=== PATIENT | female | born 2000 | race Hispanic/Latino ===

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

== ENCOUNTER 2021-07-20 21:31 | Emergency (ER) | payer MEDICAID ==
[~2021-07-20] VITALS: Ht 157.5 cm; Wt 91.6 kg
[2021-07-20 21:56] LABS: APPEARANCE,URINE Clear (CLEAR); BILIRUBIN,URINE Negative (NEGATIVE); COLOR,URINE Yellow (YELLOW); GLUCOSE, URINE (UA) Negative (NEGATIVE); KETONES,URINE Trace mg/dL (NEGATIVE); LEUKOCYTE ESTERASE ,URINE Trace (NEGATIVE); NITRATE,URINE Negative (NEGATIVE); OCCULT BLOOD,URINE Negative (NEGATIVE); PROTEIN,URINE Negative (NEGATIVE)
[2021-07-20 21:58] LABS: HCG,QUAL RESULT NEGATIVE (NEGATIVE)
[2021-07-20] MEDS ORDERED: ACETAMINOPHEN 500 MG TABLET PO ONE (22:00)
[2021-07-20] MEDS ORDERED: IBUPROFEN 600 MG TABLET PO ONE (22:00)
[2021-07-20] MEDS ORDERED: ONDANSETRON ODT 4MG TAB SL ONE (22:00)
[2021-07-20 22:11] LABS: BACTERIA,URINE Rare /HPF (None Seen); RBC,URINE 0-1 /HPF (0-1); SQUAMOUS EPITHELIAL CELL,UR Few /HPF (0-2)
[2021-07-20 22:16] LABS: BASOPHILS % (AUTO) 0.5 % (0.0-5.0); EOSINOPHILS % (AUTO) 2.4 % (0.0-8.0); HEMATOCRIT 35.4 % (36-48); LYMPHOCYTES % (AUTO) 11.5 % (21.0-51.0); MEAN CORPUSCULAR HEMOGLOBIN 24.8 pg (27.0-33.0); MEAN CORPUSCULAR HGB CONC 32.2 g/dL (32.0-36.0); MEAN CORPUSCULAR VOLUME 77.1 fL (80-100); MONOCYTES % (AUTO) 4.6 % (3.0-13.0); NEUTROPHILS % (AUTO) 80.5 % (40.0-77.0); PLATELET COUNT (AUTO) 283 K/uL (130-400); RED BLOOD CELL COUNT(AUTO) 4.59 MIL/uL (4.00-5.50); RED CELL DISTRIBUTION WIDTH 14.1 % (11.0-15.5); WHITE BLOOD COUNT (AUTO) 5.8 K/uL (4.8-10.8)
[2021-07-20 22:23] LABS: CREATININE 0.8 mg/dL (0.5-1.5); POTASSIUM 3.5 mmol/L (3.5-5.1)
[2021-07-20 22:28] LABS: ALBUMIN 3.5 g/dL (3.5-5.0); BILIRUBIN,TOTAL 0.2 mg/dL (0.2-1.0); TOTAL PROTEIN, SERUM 7.9 g/dL (6.0-8.3)
[2021-07-20] MEDS ORDERED: 0.9%NACL 1000ML 1,000 ML IV ONE (22:30)
[2021-07-20] MEDS ORDERED: ONDANSETRON 4MG INJ IVP ONE (22:30)
[2021-07-20] MEDS ORDERED: ONDA4TAB10 PO (23:06)
[2021-07-20] MEDS ORDERED: BENZ-39 PO (23:06)
[2021-07-20] MEDS ORDERED: IBUP-2070 PO (23:06)
[2021-07-20] MEDS ORDERED: AZIT500T2 PO (23:06)
[2021-07-20 23:20] VITALS: BP 145/87
== END 2021-07-20 23:47 | disposition home or self-care (01) ==
LOC: EDH 21:31
DX: J10.1 Influenza due to other identified influenza virus with other respiratory manifestations (principal)
CPT/HCPCS: 36415; 71045; 80053; 81001; 81025; 85025; 87804 ×2; 87880; 93005; 96374; 99285; J2405; J7030

== ENCOUNTER 2021-10-24 22:51 | Emergency (ER) | payer MEDICAID ==
[~2021-10-24] VITALS: Ht 157.5 cm; Wt 88.0 kg
[~2021-10-24 22:51] MED LIST: AZIT500T2 PO; BENZ-39 PO; IBUP-2070 PO; ONDA4TAB10 PO
[2021-10-24 23:27] LABS: HCG,QUALITATIVE URINE NEGATIVE (NEGATIVE)
[2021-10-24 23:27] LABS: BASOPHILS % (AUTO) 0.5 % (0.0-5.0); EOSINOPHILS % (AUTO) 2.2 % (0.0-8.0); HEMATOCRIT 36.2 % (36-48); LYMPHOCYTES % (AUTO) 20.6 % (21.0-51.0); MEAN CORPUSCULAR HEMOGLOBIN 24.9 pg (27.0-33.0); MEAN CORPUSCULAR HGB CONC 33.7 g/dL (32.0-36.0); MEAN CORPUSCULAR VOLUME 73.9 fL (80-100); MONOCYTES % (AUTO) 4.8 % (3.0-13.0); NEUTROPHILS % (AUTO) 71.5 % (40.0-77.0); PLATELET COUNT (AUTO) 399 K/uL (130-400); RED CELL DISTRIBUTION WIDTH 13.6 % (11.0-15.5); WHITE BLOOD COUNT (AUTO) 13.3 K/uL (4.8-10.8)
[2021-10-24 23:28] LABS: APPEARANCE,URINE CLEAR (CLEAR); BILIRUBIN,URINE NEGATIVE (NEGATIVE); COLOR,URINE YELLOW (YELLOW); GLUCOSE, URINE (UA) NEGATIVE (NEGATIVE); KETONES,URINE NEGATIVE (NEGATIVE); LEUKOCYTE ESTERASE ,URINE SMALL (NEGATIVE); NITRATE,URINE NEGATIVE (NEGATIVE); OCCULT BLOOD,URINE NEGATIVE (NEGATIVE); PROTEIN,URINE NEGATIVE (NEGATIVE); UROBILINOGEN,URINE 0.2 mg/dL (0.2-1.0)
[2021-10-24] MEDS ORDERED: 0.9%NACL 1000ML 1,000 ML IV ONE (23:30)
[2021-10-24] MEDS ORDERED: ONDANSETRON 4MG INJ IVP ONE (23:30)
[2021-10-24 23:34] LABS: BACTERIA,URINE None Seen /HPF (None Seen); RBC,URINE None Seen /HPF (0-1); SQUAMOUS EPITHELIAL CELL,UR Few /HPF (0-2); WBC,URINE 0-1 /HPF (0-1)
[2021-10-24 23:38] LABS: CREATININE 0.9 mg/dL (0.5-1.5); POTASSIUM 3.3 mmol/L (3.5-5.1)
[2021-10-24 23:42] LABS: ALBUMIN 3.9 g/dL (3.5-5.0); TOTAL PROTEIN, SERUM 8.4 g/dL (6.0-8.3)
[2021-10-24] MEDS ORDERED: IOHEXOL 350 MG/ML 100ML INFUS..BTL IV ONE (23:48)
[2021-10-25 00:04] LABS: AMPHET/METH SCREEN,URINE NEGATIVE (NEGATIVE); BARBITURATE SCREEN, URINE NEGATIVE (NEGATIVE); BENZODIAZEPINES SCREEN,URINE NEGATIVE (NEGATIVE); CANNABINOID SCREEN,URINE NEGATIVE (NEGATIVE); COCAINE SCREEN,URINE NEGATIVE (NEGATIVE); PHENCYCLIDINE SCREEN,URINE NEGATIVE (NEGATIVE)
[2021-10-25] MEDS ORDERED: KETOROLAC 30MG VIAL (30MG/ML) IVP ONE (00:30)
[2021-10-25 02:20] VITALS: BP 123/64
[2021-10-25] MEDS ORDERED: CEFTRIAXONE 500MG VIAL ONE (02:42)
[2021-10-25] MEDS ORDERED: DOXYCYCLINE HYCLATE 100 MG TABLET PO ONE (02:43)
[2021-10-25] MEDS ORDERED: IBUP-2070 PO (02:58)
[2021-10-25] MEDS ORDERED: DOXY-336 PO (02:58)
[2021-10-25] MEDS ORDERED: ONDA4TAB10 PO (02:58)
[2021-10-25] MEDS ORDERED: DOXYCYCLINE HYCLATE 100 MG TABLET PO SCH (03:00)
[2021-10-25] MEDS ORDERED: CEFTRIAXONE 500MG VIAL IV SCH (03:00)
== END 2021-10-25 03:20 | disposition home or self-care (01) ==
LOC: EDH 22:51
DX: N73.9 Female pelvic inflammatory disease, unspecified (principal); Z20.822 Contact with and (suspected) exposure to COVID-19; Z79.1 Long term (current) use of non-steroidal anti-inflammatories (NSAID); Z79.899 Other long term (current) drug therapy
CPT/HCPCS: 99285; 74177; 96374; 87635; 80053; 80305; 83690; 85025; 87210; 87804 ×2; 87797; 87486; 81001; 81025; 36415; 96375; C9803; Q9967; J1885; J0696

== ENCOUNTER 2022-02-06 17:44 | Emergency (ER) | payer MEDICAID ==
[~2022-02-06] VITALS: Ht 157.5 cm; Wt 88.5 kg
[~2022-02-06 17:44] MED LIST changes: +DOXY-469 PO
[2022-02-06 17:46] VITALS: BP 116/75
[2022-02-06] MEDS ORDERED: MAG/ALUM/SIMETH 30 ML UDCUP PO ONE (18:00)
[2022-02-06] MEDS ORDERED: LIDOCAINE HCL 2% VISCOUS 15 ML UDCUP PO ONE (18:00)
[2022-02-06] MEDS ORDERED: FAMOTIDINE 20MG TAB PO ONE (18:00)
[2022-02-06] MEDS ORDERED: ONDANSETRON 4MG TABLET PO ONE (18:00)
[2022-02-06] MEDS ORDERED: DICYCLOMINE HCL 10 MG/5 ML ML PO ONE (18:00)
[2022-02-06] MEDS ORDERED: ONDANSETRON ODT 4MG TAB ONE (18:03)
[2022-02-06 18:20] LABS: BASOPHILS % (AUTO) 0.6 % (0.0-5.0); EOSINOPHILS % (AUTO) 5.3 % (0.0-8.0); HEMATOCRIT 37.8 % (36-48); LYMPHOCYTES % (AUTO) 20.3 % (21.0-51.0); MEAN CORPUSCULAR HEMOGLOBIN 24.5 pg (27.0-33.0); MEAN CORPUSCULAR HGB CONC 32.5 g/dL (32.0-36.0); MEAN CORPUSCULAR VOLUME 75.1 fL (80-100); MONOCYTES % (AUTO) 4.5 % (3.0-13.0); NEUTROPHILS % (AUTO) 68.9 % (40.0-77.0); PLATELET COUNT (AUTO) 411 K/uL (130-400); RED BLOOD CELL COUNT(AUTO) 5.03 MIL/uL (4.00-5.50); RED CELL DISTRIBUTION WIDTH 14.2 % (11.0-15.5); WHITE BLOOD COUNT (AUTO) 11.6 K/uL (4.8-10.8)
[2022-02-06 18:24] LABS: APPEARANCE,URINE CLEAR (CLEAR); BILIRUBIN,URINE NEGATIVE (NEGATIVE); COLOR,URINE LIGHT-YELLOW (YELLOW); GLUCOSE, URINE (UA) NEGATIVE (NEGATIVE); KETONES,URINE NEGATIVE (NEGATIVE); LEUKOCYTE ESTERASE ,URINE 75 Leu/uL (NEGATIVE); NITRATE,URINE NEGATIVE (NEGATIVE); OCCULT BLOOD,URINE NEGATIVE (NEGATIVE); PROTEIN,URINE NEGATIVE (NEGATIVE); UROBILINOGEN,URINE 0.2 mg/dL (0.2-1.0)
[2022-02-06 18:26] LABS: HCG,QUALITATIVE URINE NEGATIVE (NEGATIVE)
[2022-02-06 18:29] LABS: CARBON DIOXIDE 26 mmol/L (21-32); CHLORIDE 101 mmol/L (101-111); CREATININE 0.7 mg/dL (0.5-1.5); GLOMERULAR FILTR. RATE CALC 112 mL/min (>60); GLUCOSE,RANDOM 98 mg/dL (70-105); SODIUM SERUM 137 mmol/L (136-145); UREA NITROGEN, BLOOD 10 mg/dL (7-18)
[2022-02-06 18:33] LABS: ALANINE AMINOTRANSFERASE 35 U/L (12-78); ALBUMIN 3.9 g/dL (3.5-5.0); ASPARTATE AMINOTRANSFERASE 18 U/L (10-37); TOTAL PROTEIN, SERUM 8.6 g/dL (6.0-8.3)
[2022-02-06 18:34] LABS: BACTERIA,URINE RARE /HPF (None Seen); MUCUS,URINE RARE LPF (None Seen); RBC,URINE 0-1 /HPF (0-1); SQUAMOUS EPITHELIAL CELL,UR RARE /HPF (0-2)
[2022-02-06 18:39] LABS: LIPASE < 50 U/L (114-286)
[2022-02-06] MEDS ORDERED: FAMO-136 PO (19:02)
== END 2022-02-06 19:08 | disposition home or self-care (01) ==
LOC: EDH 17:44
DX: K29.70 Gastritis, unspecified, without bleeding (principal); E66.9 Obesity, unspecified; Z68.35 Body mass index [BMI] 35.0-35.9, adult; F32.A Depression, unspecified; F41.9 Anxiety disorder, unspecified; Z79.899 Other long term (current) drug therapy
CPT/HCPCS: 36415; 80053; 81001; 81025; 83690; 85025; 87088

== ENCOUNTER 2022-03-31 18:05 | Emergency (ER) | payer MEDICAID ==
[~2022-03-31] VITALS: Ht 152.4 cm; Wt 89.8 kg
[~2022-03-31 18:05] MED LIST changes: +FAMO-136 PO
[2022-03-31] MEDS ORDERED: CIPR7.5D OT (19:51)
[2022-03-31] MEDS ORDERED: LORA10TA7 PO (19:52)
[2022-03-31 20:42] VITALS: BP 130/79
== END 2022-03-31 20:49 | disposition home or self-care (01) ==
LOC: EDH 18:05
DX: H92.03 Otalgia, bilateral (principal); H60.91 Unspecified otitis externa, right ear; Z20.822 Contact with and (suspected) exposure to COVID-19; F41.9 Anxiety disorder, unspecified; Z79.899 Other long term (current) drug therapy
CPT/HCPCS: 99283; 87635; 87804 ×2; C9803

== ENCOUNTER 2022-05-31 21:59 | Emergency (ER) | payer MEDICAID ==
[~2022-05-31] VITALS: Ht 157.5 cm; Wt 93.0 kg
[~2022-05-31 21:59] MED LIST changes: +CIPR7.5D OT; +LORA10TA7 PO
[2022-05-31] MEDS ORDERED: DICYCLOMINE HCL 10 MG/5 ML ML PO ONE (22:24)
[2022-05-31] MEDS ORDERED: LIDOCAINE HCL 2% VISCOUS 15 ML UDCUP PO ONE (22:30)
[2022-05-31] MEDS ORDERED: ONDANSETRON 4MG INJ IVP ONE (22:30)
[2022-05-31] MEDS ORDERED: MAG/ALUM/SIMETH 30 ML UDCUP PO ONE (22:30)
[2022-05-31] MEDS ORDERED: KETOROLAC 30MG VIAL (30MG/ML) ONE (22:53)
[2022-05-31 22:55] LABS: APPEARANCE,URINE CLEAR (CLEAR); BILIRUBIN,URINE NEGATIVE (NEGATIVE); COLOR,URINE LIGHT-YELLOW (YELLOW); GLUCOSE, URINE (UA) NEGATIVE (NEGATIVE); KETONES,URINE NEGATIVE (NEGATIVE); LEUKOCYTE ESTERASE ,URINE 25 Leu/uL (NEGATIVE); NITRATE,URINE NEGATIVE (NEGATIVE); OCCULT BLOOD,URINE MODERATE (NEGATIVE); PH,URINE 6.5 (5.0-8.0); PROTEIN,URINE NEGATIVE (NEGATIVE); UROBILINOGEN,URINE 0.2 mg/dL (0.2-1.0)
[2022-05-31 22:56] LABS: HCG,QUALITATIVE URINE NEGATIVE (NEGATIVE)
[2022-05-31 22:56] LABS: BASOPHILS % (AUTO) 0.5 % (0.0-5.0); EOSINOPHILS % (AUTO) 5.1 % (0.0-8.0); HEMATOCRIT 35.3 % (36-48); LYMPHOCYTES % (AUTO) 29.9 % (21.0-51.0); MEAN CORPUSCULAR HEMOGLOBIN 25.1 pg (27.0-33.0); MEAN CORPUSCULAR HGB CONC 32.9 g/dL (32.0-36.0); MEAN CORPUSCULAR VOLUME 76.2 fL (80-100); MONOCYTES % (AUTO) 4.7 % (3.0-13.0); NEUTROPHILS % (AUTO) 59.4 % (40.0-77.0); PLATELET COUNT (AUTO) 400 K/uL (130-400); RED BLOOD CELL COUNT(AUTO) 4.63 MIL/uL (4.00-5.50); RED CELL DISTRIBUTION WIDTH 13.5 % (11.0-15.5); WHITE BLOOD COUNT (AUTO) 10.2 K/uL (4.8-10.8)
[2022-05-31] MEDS ORDERED: KETOROLAC 30MG VIAL (30MG/ML) IVP ONE (23:00)
[2022-05-31 23:01] LABS: BACTERIA,URINE RARE /HPF (None Seen); MUCUS,URINE RARE LPF (None Seen); RBC,URINE 0-1 /HPF (0-1); SQUAMOUS EPITHELIAL CELL,UR FEW /HPF (0-2)
[2022-05-31 23:06] LABS: CARBON DIOXIDE 23 mmol/L (21-32); CHLORIDE 103 mmol/L (101-111); CREATININE 0.6 mg/dL (0.5-1.5); GLOMERULAR FILTR. RATE CALC 131 mL/min (>90); GLUCOSE,RANDOM 99 mg/dL (70-105); POTASSIUM 3.2 mmol/L (3.5-5.1); SODIUM SERUM 136 mmol/L (136-145); UREA NITROGEN, BLOOD 8 mg/dL (7-18)
[2022-05-31 23:11] LABS: ALANINE AMINOTRANSFERASE 26 U/L (12-78); ALBUMIN 3.7 g/dL (3.5-5.0); ASPARTATE AMINOTRANSFERASE 26 U/L (10-37)
[2022-05-31 23:26] LABS: LIPASE < 50 U/L (114-286)
[2022-05-31 23:33] LABS: AMPHET/METH SCREEN,URINE NEGATIVE (NEGATIVE); BARBITURATE SCREEN, URINE NEGATIVE (NEGATIVE); BENZODIAZEPINES SCREEN,URINE NEGATIVE (NEGATIVE); CANNABINOID SCREEN,URINE NEGATIVE (NEGATIVE); COCAINE SCREEN,URINE NEGATIVE (NEGATIVE); OPIATE SCREEN,URINE NEGATIVE (NEGATIVE); PHENCYCLIDINE SCREEN,URINE NEGATIVE (NEGATIVE)
[2022-05-31] MEDS ORDERED: POTASSIUM BICARB/CIT AC 25 MEQ TABLET.EFF PO STA (23:40)
[2022-05-31] MEDS ORDERED: PANT40TA55 PO (23:48)
[2022-06-01 00:17] VITALS: BP 128/74
== END 2022-06-01 00:22 | disposition home or self-care (01) ==
LOC: EDH 21:59
DX: K29.70 Gastritis, unspecified, without bleeding (principal); F41.9 Anxiety disorder, unspecified; E66.9 Obesity, unspecified; Z79.899 Other long term (current) drug therapy
CPT/HCPCS: 99284; 96374; 96375; 80053; 80305; 83690; 85025; 81025; 36415; 81001; J2405; J1885

== ENCOUNTER 2022-06-15 01:40 | Emergency (ER) | payer MEDICAID ==
[~2022-06-15] VITALS: Ht 157.5 cm; Wt 92.1 kg
[~2022-06-15 01:40] MED LIST changes: +PANT40TA55 PO
[2022-06-15 02:08] LABS: BASOPHILS % (AUTO) 0.5 % (0.0-5.0); HEMATOCRIT 37.3 % (36-48); LYMPHOCYTES % (AUTO) 21.4 % (21.0-51.0); MEAN CORPUSCULAR HEMOGLOBIN 24.8 pg (27.0-33.0); MEAN CORPUSCULAR HGB CONC 32.2 g/dL (32.0-36.0); MEAN CORPUSCULAR VOLUME 77.2 fL (80-100); NEUTROPHILS % (AUTO) 69.8 % (40.0-77.0); PLATELET COUNT (AUTO) 373 K/uL (130-400); RED BLOOD CELL COUNT(AUTO) 4.83 MIL/uL (4.00-5.50); RED CELL DISTRIBUTION WIDTH 13.7 % (11.0-15.5)
[2022-06-15 02:12] LABS: APPEARANCE,URINE CLEAR (CLEAR); BILIRUBIN,URINE NEGATIVE (NEGATIVE); COLOR,URINE COLORLESS (YELLOW); GLUCOSE, URINE (UA) NEGATIVE (NEGATIVE); KETONES,URINE NEGATIVE (NEGATIVE); LEUKOCYTE ESTERASE ,URINE 25 Leu/uL (NEGATIVE); NITRATE,URINE NEGATIVE (NEGATIVE); OCCULT BLOOD,URINE NEGATIVE (NEGATIVE); PROTEIN,URINE NEGATIVE (NEGATIVE); UROBILINOGEN,URINE 0.2 mg/dL (0.2-1.0)
[2022-06-15 02:15] LABS: RBC,URINE 0-1 /HPF (0-1); SQUAMOUS EPITHELIAL CELL,UR RARE /HPF (0-2); WBC,URINE 0-1 /HPF (0-1)
[2022-06-15 02:24] LABS: CARBON DIOXIDE 26 mmol/L (21-32); CHLORIDE 100 mmol/L (101-111); CREATININE 0.7 mg/dL (0.5-1.5); GLOMERULAR FILTR. RATE CALC 126 mL/min (>90); GLUCOSE,RANDOM 103 mg/dL (70-105); POTASSIUM 3.4 mmol/L (3.5-5.1); SODIUM SERUM 133 mmol/L (136-145); UREA NITROGEN, BLOOD 7 mg/dL (7-18)
[2022-06-15 02:30] LABS: ALANINE AMINOTRANSFERASE 25 U/L (12-78); ALBUMIN 3.9 g/dL (3.5-5.0); ASPARTATE AMINOTRANSFERASE 13 U/L (10-37); TOTAL PROTEIN, SERUM 7.9 g/dL (6.0-8.3)
[2022-06-15 02:31] LABS: LIPASE < 50 U/L (114-286)
[2022-06-15] MEDS ORDERED: 0.9%NACL 1000ML 1,000 ML IV ONE (03:00)
[2022-06-15] MEDS ORDERED: ONDANSETRON 4MG INJ IVP ONE (03:00)
[2022-06-15] MEDS ORDERED: KETOROLAC 30MG VIAL (30MG/ML) IVP ONE (03:00)
[2022-06-15 03:26] LABS: AMYLASE 58 U/L (25-115); CREATINE KINASE, TOTAL 55 U/L (21-232)
[2022-06-15] MEDS ORDERED: ONDA-104 PO (03:40)
[2022-06-15] MEDS ORDERED: IBUP-2071 PO (03:40)
[2022-06-15 04:09] VITALS: BP 110/68
== END 2022-06-15 04:11 | disposition home or self-care (01) ==
LOC: EDH 01:43
DX: K80.20 Calculus of gallbladder without cholecystitis without obstruction (principal); E66.9 Obesity, unspecified; Z79.899 Other long term (current) drug therapy
CPT/HCPCS: 99285; 96374; 76705; 96361; 96375; 82150; 82550; 84484; 80053; 83690; 85025; 81001; 81025; 36415; 93005; J7030; J2405; J1885

== ENCOUNTER 2022-07-24 19:54 | Emergency (ER) | payer MEDICAID, OTHER ==
[~2022-07-24] VITALS: Ht 157.5 cm; Wt 95.3 kg
[~2022-07-24 19:54] MED LIST changes: -AZIT500T2 PO; -BENZ-39 PO; -CIPR7.5D OT; -DOXY-469 PO; -FAMO-136 PO; +IBUP-1493 PO; -IBUP-2070 PO; -LORA10TA7 PO; +OMEP40CA21 PO; +ONDA-104 PO; -ONDA4TAB10 PO; -PANT40TA55 PO
[2022-07-24 19:59] VITALS: BP 127/71
[2022-07-24] MEDS ORDERED: IBUP-2070 PO (22:30)
== END 2022-07-24 22:39 | disposition home or self-care (01) ==
LOC: EDH 19:54
DX: S66.812A Strain of other specified muscles, fascia and tendons at wrist and hand level, left hand, initial encounter (principal); S40.022A Contusion of left upper arm, initial encounter; Z79.899 Other long term (current) drug therapy; Z98.890 Other specified postprocedural states; W18.39XA Other fall on same level, initial encounter; Y93.89 Activity, other specified; Y92.89 Other specified places as the place of occurrence of the external cause; Y99.8 Other external cause status
CPT/HCPCS: 29105; 73070; 73090; 73100

== ENCOUNTER 2022-09-10 23:23 | Emergency (ER) | payer MEDICAID ==
[~2022-09-10] VITALS: Ht 157.5 cm; Wt 93.0 kg
[~2022-09-10 23:23] MED LIST changes: +IBUP-2070 PO
[2022-09-10 23:26] VITALS: BP 152/83
== END 2022-09-11 | disposition home or self-care (01) ==
LOC: EDH 23:23
DX: T16.2XXA Foreign body in left ear, initial encounter (principal); E66.9 Obesity, unspecified; F41.9 Anxiety disorder, unspecified; Z79.899 Other long term (current) drug therapy; Z98.890 Other specified postprocedural states; X58.XXXA Exposure to other specified factors, initial encounter; Y93.89 Activity, other specified; Y92.89 Other specified places as the place of occurrence of the external cause; Y99.8 Other external cause status
CPT/HCPCS: 99281

== ENCOUNTER 2022-09-28 18:25 | Emergency (ER) | payer MEDICAID ==
[~2022-09-28] VITALS: Ht 157.5 cm; Wt 95.3 kg
[2022-09-28 18:31] VITALS: BP 121/63
[2022-09-28] MEDS ORDERED: HYDROXYZINE 50MG VIAL 50 MG/ML VIAL IM SCH (22:00)
[2022-09-28] MEDS ORDERED: HYD25 PO (23:26)
== END 2022-09-28 23:37 | disposition home or self-care (01) ==
LOC: EDH 18:25
DX: F41.9 Anxiety disorder, unspecified (principal); E66.9 Obesity, unspecified; Z79.1 Long term (current) use of non-steroidal anti-inflammatories (NSAID); Z79.899 Other long term (current) drug therapy; Z90.49 Acquired absence of other specified parts of digestive tract; Z68.38 Body mass index [BMI] 38.0-38.9, adult
CPT/HCPCS: 99283; 96372; J3410

== ENCOUNTER 2022-12-02 09:52 | Emergency (ER) | payer MEDICAID ==
[~2022-12-02] VITALS: Ht 157.5 cm; Wt 95.3 kg
[~2022-12-02 09:52] MED LIST changes: +HYD25 PO
[2022-12-02 10:22] LABS: SARS-CoV-2, RNA, NAAT POSITIVE SARS CoV-2 (NEGATIVE)
[2022-12-02 10:32] LABS: INFLUENZA TYPE A Negative For Type A (NEGATIVE); INFLUENZA TYPE B Negative For Type B (NEGATIVE)
[2022-12-02 11:40] VITALS: BP 110/65; PULSE 85; RESP 17; O2SAT 99
== END 2022-12-02 11:48 | disposition home or self-care (01) ==
LOC: EDH 09:52
DX: U07.1 COVID-19 (principal); F41.9 Anxiety disorder, unspecified; E66.9 Obesity, unspecified; Z79.1 Long term (current) use of non-steroidal anti-inflammatories (NSAID); Z79.899 Other long term (current) drug therapy; Z90.49 Acquired absence of other specified parts of digestive tract
CPT/HCPCS: 99283; 87635; 87804 ×2; C9803